=== PATIENT | male | born 2000 | race Caucasian/White ===

== ENCOUNTER 2022-11-06 17:15 | Emergency (ER) | payer OTHER, SELFPAY ==
--- NOTE | ~2022-11-06 | XR_ITS ---
EXAMINATION: XR CHEST CLINICAL INFORMATION: Chest pain COMPARISON: None available. TECHNIQUE: Frontal view of the chest was obtained. FINDINGS: No significant abnormality is noted involving the heart, lungs, mediastinum, bony thorax or soft tissues. XR/XR chest 1V IMPRESSION: Unremarkable examination.
--- NOTE | 2022-11-06 17:22 | ECG_ITS ---
Test Reason : SOB Blood Pressure : / mmHG Vent. Rate : 082 BPM Atrial Rate : 082 BPM P-R Int : 128 ms QRS Dur : 090 ms QT Int : 354 ms P-R-T Axes : 068 034 047 degrees QTc Int : 413 ms Normal sinus rhythm with sinus arrhythmia Normal ECG No previous ECGs available Referred By: Mary Ann Barry Electronically Signed By:SHRUTI BATES MD
--- NOTE | 2022-11-06 17:23 | ED_ITS ---
HPI - General Adult General Chief complaint: Chest Pain Stated complaint: Chest pain/SOB Time Seen by Provider: 11/06/22 20:56 Related Data Previous Rx's ?Medication ?Instructions ?Recorded omeprazole 40 mg capsule,delayed 40 mg PO DAILY #20 caps 11/06/22 release Allergies Allergy/AdvReac Type Severity Reaction Status Date / Time No Known Allergies Allergy Verified 11/12/23 19:43 [facility] Past Medical History Medical History History of ADHD Social History Social History Alcohol intake: current Alcohol intake frequency: a few times a month Substance Use Type: Marijuana Advance Directives: No Advance Directives Information Provided: No Physical Exam ED Vital Signs: BMI result Body Mass Index 25.0 Course Course Course Narrative: This is an RME: Additional HPI, ROS, PE not included below will be deferred to primary provider. 22-year-old male presents with substernal chest pain with radiation to left arm for few weeks worsening of the past few days. Intermittent sharp in nature. Was told to come in for evaluation of chest pain from urgent care. With associated shortness of breath. Denies fevers, chills, nausea, vomiting, abdominal pain, headache, vision changes, dizziness. No significant personal or family cardiac history. Tells me he is feeling slightly anxious. Physical exam benign. Plan cardiac workup. Will obtain EKG, troponin, basic labs, chest x-ray. Medications Administered Discontinued Medications Generic Name Dose Route Start Last Admin Trade Name Freq PRN Reason Stop Dose Admin Omeprazole 40 mg 11/06/22 21:23 11/06/22 21:34 Omeprazole 40 Mg Capsule.Dr ESTRADA 11/06/22 21:24 40 mg ONCE ONE Administration Medical Decision Making Lab Data 11/06/22 17:42 11/06/22 17:42 Labs: Lab Results 11/06/22 Range/Units 17:42 WBC 8.9 (4.8-10.8) X10*3/uL RBC 5.30 (4.60-5.80) X10*6/uL Hgb 15.5 (14.0-18.0) g/dl Hct 46.0 (42.0-52.0) % MCV 86.8 (80.0-98.0) fL MCH 29.2 (27.0-33.0) pg MCHC 33.7 (31.0-36.0) g/dl RDW 12.5 (11.0-16.0) % Plt Count 320 (160-400) X10*3/uL MPV 10.4 (9.4-12.4) fL Immature Gran % (Auto) 0.3 (0.0-0.4) % Neut % (Auto) 70.1 (45-73) % Lymph % (Auto) 22.1 (20-40) % [place] % (Auto) 7.2 (2-11) % Eos % (Auto) 0.0 (0-4) % Baso % (Auto) 0.3 (0-2) % Lymph # (Auto) 2.0 (1.2-4.9) X10*3/uL [place] # (Auto) 0.6 (0.1-1.2) X10*3/uL Eos # (Auto) 0.0 (0.0-0.4) X10*3/uL Baso # (Auto) 0.0 (0.0-0.2) X10*3/uL Abs Immat Gran (auto) 0.03 (0.00-0.03) X10*3/uL Absolute Neuts (auto) 6.2 (2.0-8.3) x10*3/uL Absolute Nucleated RBC 0.000 (0.0-0.012) X10*3/uL Nucleated RBC % (auto) 0.0 (0.0-0.2) /100WBC D-Dimer High Sensitivty < 150 NG/ML Sodium 141 (135-145) mmol/L Potassium 3.8 (3.3-5.1) mmol/L Chloride 107 (96-108) mmol/L Carbon Dioxide 26 (22-29) mmol/L Anion Gap 12 (12-20) BUN 13 (9-16) mg/dL Creatinine 1.04 (0.5-1.4) mg/dL Estim Creat Clear Calc TNP Estimated GFR > 60 Random Glucose 104 (60-115) mg/dL Calcium 9.7 (8.4-10.2) mg/dL Magnesium 2.3 (1.6-2.6) mg/dL Total Bilirubin 0.5 (0.0-1.0) mg/dL AST 27 (5-37) U/L ALT 76 H (0-40) U/L Alkaline Phosphatase 81 (39-117) U/L Troponin I High Sens < 3.5 (<3.5-35.0) ng/L B-Natriuretic Peptide < 10 (<100) pg/mL Total Protein 7.6 (6.5-8.0) g/dL Albumin 4.5 (3.5-5.0) g/dL COVID-19 (CORDELIA) Negative (Negative) COVID-19 Clin Com See Note Discharge Plan Discharge Clinical Impression: Chest pain due to GERD Patient Disposition: Home, Self-Care Instructions: Gastroesophageal Reflux Disease (ED), Noncardiac Chest Pain (ED) Additional Instructions: your chest pain is likely from esophageal spasm from GERD also you have anxiety Take acid medication as prescribed and follow with PCP Prescriptions: New omeprazole 40 mg capsule,delayed release(DR/EC) 40 mg PO DAILY Qty: 20 0RF Interventions: ED Discharge Assessment Last Done: 11/06/22 21:38 Discharge Date/Time: 11/06/22 21:38 Print Language: Spanish
[2022-11-06 17:55] LABS: MANUAL DIFF FLAG NO
[2022-11-06 17:57] LABS: Basophils Percent Auto 0.3 % (0-2); Hemoglobin 15.5 g/dl (14.0-18.0); Imm Gran Abs Auto 0.03 X10*3/uL (0.00-0.03); Imm Gran Pct Auto 0.3 % (0.0-0.4); Lymphocytes Percent Auto 22.1 % (20-40); Mean Corpuscular HGB Conc 33.7 g/dl (31.0-36.0); Mean Corpuscular Hemoglobin 29.2 pg (27.0-33.0); Mean Corpuscular Volume 86.8 fL (80.0-98.0); Mean Platelet Volume 10.4 fL (9.4-12.4); Monocytes Absolute Auto 0.6 X10*3/uL (0.1-1.2); Monocytes Percent Auto 7.2 % (2-11); Neutrophils Absolute Auto 6.2 x10*3/uL (2.0-8.3); Neutrophils Percent Auto 70.1 % (45-73); Platelet Count 320 X10*3/uL (160-400); Red Cell Distribution Width 12.5 % (11.0-16.0); White Blood Count 8.9 X10*3/uL (4.8-10.8)
[2022-11-06 18:05] LABS: D Dimer High Sensitivity < 150 NG/ML
[2022-11-06 18:15] VITALS: BP 111/79; PULSE 86; RESP 19; TEMP 36.6; O2SAT 98; BMI 25.0
[2022-11-06 18:17] LABS: Alanine Aminotransferase 76 U/L (0-40); Albumin Level 4.5 g/dL (3.5-5.0); Alkaline Phosphatase 81 U/L (39-117); Anion Gap 12 (12-20); Aspartate Amino Transferase 27 U/L (5-37); Bilirubin Total 0.5 mg/dL (0.0-1.0); Blood Urea Nitrogen 13 mg/dL (9-16); Calcium 9.7 mg/dL (8.4-10.2); Carbon Dioxide 26 mmol/L (22-29); Chloride 107 mmol/L (96-108); Estimated Glomerular Filt Rate > 60; Glucose Random 104 mg/dL (60-115); Magnesium 2.3 mg/dL (1.6-2.6); Potassium 3.8 mmol/L (3.3-5.1); Sodium 141 mmol/L (135-145); Total Protein 7.6 g/dL (6.5-8.0)
[2022-11-06 18:22] LABS: B Type Natriuretic Peptide < 10 pg/mL (<100)
[2022-11-06 18:23] LABS: COVID-19 Test Negative (Negative); IDNOW Serial# 9DB6401D
[2022-11-06 18:24] LABS: Troponin-I High Sensitivity < 3.5 ng/L (<3.5-35.0)
[2022-11-06 20:31] VITALS: BP 117/76; PULSE 74; RESP 14; TEMP 36.2; O2SAT 98
--- NOTE | 2022-11-06 20:42 | PC.NURSE ---
pt AOx3, vitals stable. comes into ER with intermittent sharp bilateral chest pain with shakiness and SOB. Currently, pt is not short of breath but reports some sharp pain in the right chest
--- NOTE | 2022-11-06 20:52 | PC.NURSE ---
Addendum entered by Debbie Jeffries 11/06/22 21:00: pt on awake overnight monitor - NSR Original Note: pt states that he was taking a testosterone booster and a preworkout supplement but discontinued both after he had similar symptoms a few weeks ago. since then symptoms have continued intermittently until today when the chest pain and shortness of breath prompted him to come to the ER.
[2022-11-06] MEDS: Omeprazole 40 MG CAPSULE.DR PO (21:34)
--- NOTE | 2022-11-06 21:37 | PC.NURSE ---
pt medicated per provider order.
== END 2022-11-06 21:38 | disposition home or self-care (01) ==
PROVIDERS: Physician Assistant; Emergency Provider Internal Medicine
DX: R07.89 Other chest pain (principal); R06.02 Shortness of breath; Z20.822 Contact with and (suspected) exposure to COVID-19; Z20.828 Contact with and (suspected) exposure to other viral communicable diseases; Z79.899 Other long term (current) drug therapy
CPT/HCPCS: 36415; 71045; 80053; 83735; 83880; 84484; 85025; 85379; 87635; 93005; 99283; 99285

== ENCOUNTER 2023-11-12 18:52 | Emergency (ER) | payer OTHER, SELFPAY ==
--- NOTE | ~2023-11-12 | US_ITS ---
EXAMINATION: US SCROTUM CLINICAL INFORMATION: Left testicular pain. COMPARISON: None available. TECHNIQUE: A sonogram of the scrotum was performed assessing peacock-scale appearance and color Doppler flow. Spectral Doppler analysis of the arterial and venous flow were performed in the testes bilaterally. FINDINGS: RIGHT: Right testicle measures 4.6 x 2.4 x 2.8 cm, volume 16.3 mL. No focal testicular parenchymal lesions are visualized. Spectral Doppler analysis of the arterial and venous flow is normal in the right testis. Right epididymal head is normal in size. No right hydrocele or varicocele is seen. Right epididymal Doppler flow is normal. LEFT: Left testicle measures 4.3 x 2.3 x 3.4 cm, volume 17 point mL. No focal testicular parenchymal lesions are visualized. Spectral Doppler analysis of the arterial and venous flow is normal in the left testis. Left epididymal head is normal in size. There is a 7 mm cyst present in the head of the epididymis. No left hydrocele or varicocele is seen. Left epididymal Doppler flow is normal. US/US scrotum doppler IMPRESSION: Negative exam. A cause for the patient's left testicular pain has not been found.
--- NOTE | ~2023-11-12 | US_ITS ---
EXAMINATION: US SCROTUM CLINICAL INFORMATION: Left testicular pain. COMPARISON: None available. TECHNIQUE: A sonogram of the scrotum was performed assessing peacock-scale appearance and color Doppler flow. Spectral Doppler analysis of the arterial and venous flow were performed in the testes bilaterally. FINDINGS: RIGHT: Right testicle measures 4.6 x 2.4 x 2.8 cm, volume 16.3 mL. No focal testicular parenchymal lesions are visualized. Spectral Doppler analysis of the arterial and venous flow is normal in the right testis. Right epididymal head is normal in size. No right hydrocele or varicocele is seen. Right epididymal Doppler flow is normal. LEFT: Left testicle measures 4.3 x 2.3 x 3.4 cm, volume 17 point mL. No focal testicular parenchymal lesions are visualized. Spectral Doppler analysis of the arterial and venous flow is normal in the left testis. Left epididymal head is normal in size. There is a 7 mm cyst present in the head of the epididymis. No left hydrocele or varicocele is seen. Left epididymal Doppler flow is normal. US/US scrotum IMPRESSION: Negative exam. A cause for the patient's left testicular pain has not been found.
[2023-11-12 19:44] VITALS: BP 133/63; PULSE 76; RESP 18; TEMP 37.3; O2SAT 98; BMI 29.8
--- NOTE | 2023-11-12 19:46 | ED_ITS ---
HPI - Female Genitourinary General Chief complaint: Urogenital-Male Stated complaint: testicular pain Time Seen by Provider: 11/12/23 23:30 Source: patient Mode of arrival: ambulatory History of Present Illness HPI Narrative: 23-year-old male arrives with complaints of having caught his scrotum/testicle in between the heel if is shoe in his leg on Saturday and has had pain ever since without discharge from the penis, denies any dysuria, denies any rash or vesicle/ulceration. Patient states that he is in a monogamous relationship, M2M, and does not always use protection. Related Data Previous Rx's Medication Instructions Recorded omeprazole 40 mg capsule,delayed 40 mg PO DAILY #20 caps 11/06/22 release Allergies Allergy/AdvReac Type Severity Reaction Status Date / Time No Known Allergies Allergy Verified 11/12/23 19:43 Review of Systems Review of Systems: Pertinent positives and negatives as stated in HPI [facility] Past Medical History Source: nursing notes reviewed Medical History History of ADHD Social History Social History Alcohol intake: current Alcohol intake frequency: a few times a month Substance Use Type: Marijuana Advance Directives: No Advance Directives Information Provided: No Physical Exam Vital Signs: Vital Signs: Last Vital Signs Temp 97.7 F 11/13/23 00:28 Pulse 76 11/13/23 00:28 Resp 16 11/13/23 00:28 BP 142/74 H 11/13/23 00:28 Pulse Ox 97 11/13/23 00:28 O2 Del Method Room Air 11/13/23 00:28 BMI result Body Mass Index 29.8 VITAL SIGNS: Reviewed. GENERAL: Well developed, well nourished, in no acute distress. HEAD: Normocephalic/atraumatic EYES: PERRLA, EOMI LUNGS: Normal breath sounds. No adventitious sounds or accessory muscle use. SpO2<98> CARDIOVASCULAR: Regular rate and rhythm without noted murmurs ABDOMEN: Soft, non-tender, non-distended with bowel sounds. MUSCULOSKELETAL: No tenderness, deformities, or effusions noted on gross inspection. EXTREMITIES: No cyanosis, clubbing or edema. SKIN: Inspection of the skin reveals no rashes NEUROLOGIC: Alert and oriented x 4. Strength and sensation to light touch were grossly intact x 4. Course Course Course Narrative: RME: 23 yold male presents to the ED for left testicular pain since saturday without any trauma. labs and scrotal ultrasound ordered. Medical Decision Making Medical Decision Making [facility] Narrative: 23-year-old male with history and clinical presentation, DDX: Varicocele, low clinical suspicion for torsion, possible STI or urinary tract infection. Urinalysis negative for urinary tract infection or evidence of hematuria. Gonorrhea/chlamydia testing is pending. Testicular ultrasound negative for evidence of torsion and no evidence of hydrocele or varicocele. All findings and results discussed with the patient at bedside and he will make arrangements for patient portal access to follow-up on STI testing. Differential Diagnosis Differential Diagnoses: The differential diagnosis associated with the presentation includes Please see the discussion above Admission/Observation Consideration of admission/observation: Escalation of care including admission/observation considered Please see the discussion above Lab Data [facility] Lab Attestation statement: I reviewed the patient's lab results. Please see the discussion above Labs: Lab Results 11/12/23 Range/Units 20:10 Urine Color Dark Yellow Urine Appearance Clear Urine pH 5.5 (5.0-9.0) Ur Specific [place] >= 1.030 H (1.005-1.025) Urine Protein 30 (1+) H (Neg-Trace) mg/dL Urine Glucose (UA) Negative (Negative) mg/dL Urine Ketones 40 (Negative) mg/dL Urine Blood Negative (Negative) Urine Nitrite Negative (Negative) Ur Leukocyte Esterase Negative (Negative) Urine RBC 0-2 (0-2) /HPF Urine WBC 0-5 (0-5) /HPF Ur Squamous Epith Cells 0-2 (0-2) /HPF Urine Bacteria None Seen (None Seen) Hyaline Casts 0-2 (0-2) /LPF Chlam trachomat DNA PCR NOT DETECTED (Not Detect.) N.gonorrhoeae DNA (PCR) NOT DETECTED (Not Detect.) Radiology Impression Discussion of test interpretation with radiology: I have reviewed the radiologist's reading. Radiologist Impression: Please see the discussion above Discharge Plan Discharge Clinical Impression: Pain in testicle Patient Disposition: Home, Self-Care Instructions: Testicle Pain (ED) Additional Instructions: 1. I recommend [id number] Tylenol/ibuprofen as needed for pain control. 2. I also recommend to use briefs instead of Boxer's for the next 24-48 hours, also consider using a try fold how for elevation while sleeping. Please follow-up on the remainder of your workup via the patient portal. Prescriptions: No Action omeprazole 40 mg capsule,delayed release(DR/EC) 40 mg PO DAILY Qty: 20 0RF Interventions: ED Discharge Assessment Last Done: 11/13/23 00:28 Discharge Date/Time: 11/13/23 00:29
[2023-11-12 20:18] LABS: Appearance Urine Clear; Color Urine Dark Yellow; Glucose Urine UA Negative (Negative); Leukocyte Esterase Urine Negative (Negative); Nitrite Urine Negative (Negative); PH 5.5 (5.0-9.0); Specific Gravity - Urine >= 1.030 (1.005-1.025); UMIC TRIGGER UACC YES; Urine Blood Negative (Negative); Urine Ketones 40 mg/dL (Negative); Urine Protein 30 (1+) mg/dL (Neg-Trace)
[2023-11-12 20:22] LABS: Bacteria Urine None Seen (None Seen); Hyaline Casts Urine 0-2 /LPF (0-2); RBC Urine 0-2 /HPF (0-2); Squamous Epithelial Cell Urine 0-2 /HPF (0-2); WBC Urine 0-5 /HPF (0-5)
[2023-11-13 00:28] VITALS: BP 142/74; PULSE 76; RESP 16; TEMP 36.5; O2SAT 97
[2023-11-13 05:28] LABS: CT PCR NOT DETECTED (Not Detect.); NG PCR NOT DETECTED (Not Detect.)
== END 2023-11-13 00:29 | disposition home or self-care (01) ==
PROVIDERS: Physician Assistant; Emergency Provider Student in an Organized Health Care Education/Training Program
DX: N50.812 Left testicular pain (principal); N50.811 Right testicular pain; Z20.2 Contact with and (suspected) exposure to infections with a predominantly sexual mode of transmission
CPT/HCPCS: 0353U; 76870; 81001; 93975; 99282; 99284